=== PATIENT | male | born 1950 | race African-American/Black ===

== ENCOUNTER → 2016-07-02 | Outpatient (CLI) | payer MEDICARE, OTHER ==
[~2016-07-02] MED LIST: CEPH500C3 PO
--- NOTE | 2016-07-09 11:20 | RSPPFT ---
DATE OF PROCEDURE: 07/02/16 COMMENTS: Spirometry with FVC of 3.5 at 71% of predicted, FEV1 of 2.5 at 65%, FEV1/FVC ratio is normal. Flow is decreased at FEF 25-75. There is a good response after bronchodilator treatment. Flow volume loop indicates a restrictive pattern. IMPRESSION: 1. Mild small airways obstructive lung disease. 2. Good response after bronchodilator treatment.
== END ==
LOC: HRSP 12:34
PROVIDERS: ATTEND Family Medicine
DX: J44.9 Chronic obstructive pulmonary disease, unspecified (principal); Z72.0 Tobacco use
CPT/HCPCS: 94060